=== PATIENT | male | born 1950 | race Caucasian/White ===

== ENCOUNTER → 2016-08-20 | Outpatient (CLI) | payer BC ==
[~2016-08-20] MED LIST: B-100 COMPLEX100 MG PO; PERCOCET5/325 PO; VITAMIN B-123000 MCG PO; VITAMIN D1000 UNIT PO; VITAMIN E400 UNI2 PO; XARELTO10 MG PO
--- NOTE | ~2016-08-20 | EKG ---
PATIENT: NAHID VICTOR UNIT #: [id number] Ventricular Rate: 64 BPM Atrial Rate: 64 BPM P-R Interval: 178 ms QRS Duration: 116 ms Q-T Interval: 414 ms QTC Calculation(Bezet): 427 ms P Conifer: 39 degrees Calculated R Conifer: 31 degrees Calculated T Conifer: 51 degrees Diagnosis Line: Sinus rhythm with marked sinus arrhythmia Diagnosis Line: Otherwise normal ECG Diagnosis Line: No previous ECGs available Diagnosis Line: Confirmed by DILLAN NELSON MD ([id number]) on Diagnosis Line: 08/21/2016 7:59:38 AM INTERPRETING MD: LESLIE CHIN
[2016-08-20 12:12] LABS: HEMATOCRIT 42.2 % (38.0-50.0); HEMOGLOBIN 14.4 gm/dL (13.0-16.0); MEAN CELL VOLUME 97.5 FL (83-96); MEAN CORPUSCULAR HEMOGLOBIN 33.4 PG (28-34); MEAN CORPUSCULAR HGB CONC 34.2 g/dL (30-36); MEAN PLATELET VOLUME 9.2 FL (6.5-11.5); RED BLOOD COUNT 4.33 X10e (3.90-5.60); RED CELL DISTRIBUTION WIDTH 12.8 % (11.0-15.5)
[2016-08-20 12:29] LABS: URINE APPEARANCE CLEAR; URINE BILIRUBIN NEG (NEG); URINE BLOOD NEG (NEG); URINE COLOR YELLOW; URINE GLUCOSE NEG (NEG); URINE KETONE NEG (NEG); URINE LEUKOCYTE ESTERASE NEG (NEG); URINE NITRATE NEG (NEG); URINE PH 6.5 (5-8); URINE PROTEIN NEG (NEG); URINE SPECIFIC GRAVITY 1.015 (1.003-1.035); URINE UROBILINOGEN 0.2 MG/DL (NEG)
[2016-08-20 12:44] LABS: CALCIUM SERUM 9.3 mg/dL (8.4-10.2); CREATININE SERUM 0.5 mg/dL (0.6-1.4); GLOM FILT RATE Estimated 114.6 mL/min (>60); POTASSIUM 4.1 mmol/L (3.5-5.1)
[2016-08-20 12:47] LABS: URINE SOURCE CLEAN CATCH
[2016-08-20 12:48] LABS: CULTURE INDICATED? NO
== END | disposition home or self-care (01) ==
LOC: CAMB 10:46
PROVIDERS: Orthopaedic Surgery
DX: Z01.818 Encounter for other preprocedural examination (principal); M19.072 Primary osteoarthritis, left ankle and foot; S86.312A Strain of muscle(s) and tendon(s) of peroneal muscle group at lower leg level, left leg, initial encounter
CPT/HCPCS: 36415; 80048; 81003; 85027; 87070; 93005

== ENCOUNTER 2016-09-01 08:24 | Inpatient (IN) | payer BC ==
[~2016-09-01] VITALS: Ht 175.3 cm; Wt 88.6 kg
--- NOTE | ~2016-09-01 | HP ---
Unit #: [id number] #: [id number] Patient: NAHID VICTOR [id number] [address] [place], [place] [address] [id number] I MR#: [id number] NAME: NAHID VICTOR. ROOM: [facility] Age: Sex: M Admission Date: 09/01/2016 : 1950 Attending Physician: Brock Slade M.D. HISTORY AND PHYSICAL CHIEF COMPLAINT Left ankle pain and deformity. HISTORY OF PRESENT ILLNESS The patient is a 66-year-old male with a history of multiple left ankle injuries in the past. He now has developed worsening left ankle pain and deformity. He has been treated with pain cream, cortisone injections, and anti-inflammatory medications. X-rays show fhgi-rt-lydd opposition of the superior medial tibiotalar joint with 6 degrees of tibiotalar varus. Clinically, he has 20 degrees of heel varus and radiographs show a cavus deformity. The patient is therefore admitted for left ankle replacement, lateralizing calcaneal osteotomy, first metatarsal osteotomy, and peroneal tendon repair, and Brostrom reconstruction. The patient has a MRI which documents peroneus brevis tendon tear. PAST MEDICAL HISTORY Gout. CURRENT MEDICATIONS None. ALLERGIES None. PAST SURGICAL HISTORY None. SOCIAL HISTORY The patient drinks alcohol socially. He is a nonsmoker. FAMILY HISTORY Remarkable for alcohol abuse. REVIEW OF SYSTEMS Unremarkable. PHYSICAL EXAMINATION GENERAL: Height 5 foot 9 inches, weight 200 pounds, BMI 29.5. This is a well-developed, well-nourished male in no acute distress. HEENT: Pharynx is clear. NECK: Supple without masses. HEART: Reveals a regular sinus rhythm without murmurs or gallops. LUNGS: Clear. ABDOMEN: Soft and nontender without masses or organomegaly. Unit #: [id number] #: [id number] Patient: NAHID VICTOR EXTREMITIES: Evaluation of the left foot shows a mild cavus deformity. There is 20 degrees of left heel varus. Left ankle dorsiflexion 5 degrees. Plantar flexion 40 degrees. Subtalar inversion 20 degrees. Eversion zero degrees. First MTP joint motion is normal. The patient has moderate swelling of the ankle. He has a positive peek-a-pichardo heel sign. The patient is maximally tender along the posterolateral ankle joint as well as in the anterior aspect of the tibiotalar joint. Pulses are normal. Sensation is normal. Motor exam is normal to include normal eversion strength. DIAGNOSTIC STUDIES IMAGING: Standing x-rays of the left ankle demonstrate qfih-hq-neiv opposition of the superior medial tibiotalar joint with 6 degrees of tibiotalar varus. Lateral talar first metatarsal angle is 5 degrees. Calcaneal pitch 17 degrees. Medial cuneiform height is 24 mm. ADMITTING DIAGNOSES 1. Left ankle arthritis with tibiotalar varus. 2. Left cavovarus foot deformity. 3. Left peroneus brevis tendon tear. PLAN 1. The patient has failed conservative care. Risks and benefits of fusion versus replacement have been discussed. He agrees to proceed with ankle replacement. 2. The patient will therefore be scheduled for left total ankle arthroplasty using the Thor Talaris implant, Enciso calcaneal osteotomy, peroneus brevis repair, and possible peroneal tenodesis, Brostrom lateral ankle reconstruction, and possible elevating osteotomy of the first metatarsal dorsal base. This procedure was described with a diagram. Risks of the procedure were discussed to include bleeding, infection, nerve damage, need for further surgery in the future, prolonged recovery time, deep venous thrombosis, pulmonary embolism, anesthetic complications, loosening the prosthesis, infection of the prosthesis, need for multiple revision surgeries to include fusion in the future. He understands above risks and agrees to proceed. Dictated by Db Murillo/ramu TD: 08/31/2016 16:33 JOB #: [id number] Unit #: [id number] #: [id number] Patient: NAHID VICTOR HISTORY AND PHYSICAL Page 1 of 1 X Joanna Slade MD X HISTORY AND PHYSICAL
--- NOTE | ~2016-09-01 | DS ---
Unit #: [id number] #: [id number] Patient: NAHID VICTOR [id number] [address] [place], [place] [address] [id number] I MR#: [id number] NAME: NAHID VICTOR. ROOM: [facility] Age: 66 Sex: M Admission Date: 09/01/2016 : 1950 Discharge Date: 09/03/2016 Attending Physician: Brock Slade M.D. DISCHARGE SUMMARY CHIEF COMPLAINT Left ankle pain and deformity. HISTORY OF PRESENT ILLNESS The patient is a 66-year-old male with a history of multiple left ankle injuries in the past. He now has end-stage ankle arthritis with ankle varus. He also has 20 degrees of heel varus and a cavus deformity. He is therefore admitted for left ankle replacement, calcaneal osteotomy, first metatarsal osteotomy, and Brostrom reconstruction. HOSPITAL COURSE The patient was taken to the operating room on the day of admission where he underwent left ankle replacement using the Thor Talaris implant, lateralizing calcaneal osteotomy, elevating first metatarsal base osteotomy, and Brostrom ligamentous reconstruction. There were no operative complications. He had a stable postoperative course. He remained afebrile with stable vital signs. He was seen by physical therapy and instructed on how to remain nonweightbearing on his effected extremity. Pain was controlled with Percocet and IV morphine [employer]. Dressing was changed on the second postoperative day. Wounds were healing well. He was ready for discharge at that time. FINAL DIAGNOSIS Left ankle arthritis. OPERATIONS 1. Left ankle replacement. 2. Calcaneal osteotomy. 3. First metatarsal base osteotomy. 4. Lateral ankle ligamentous reconstruction on September 01, 2016. DISPOSITION AND RECOMMENDATIONS 1. The patient is discharged home. Will keep the dressing clean, dry, and intact. He will continue ice and elevation. He will remain strictly nonweightbearing on the left leg for six weeks. 2. Discharge medications remain the same as home medications with the addition of Xarelto 10 mg p.o. daily for 12 more days and Percocet 5/325 one or two p.o. q.4-6 hours p.r.n. pain dispense #50. 3. Followup in my office in 10-14 days for dressing change, suture removal, and application of a CAM boot. He will continue nonweightbearing for a total of six weeks. Unit #: [id number] #: [id number] Patient: NAHID VICTOR Dictated byDb Underwood/ramu TD: 09/03/2016 09:47 JOB #: [id number] DISCHARGE SUMMARY Page 1 of 1 X Joanna Slade MD X DISCHARGE SUMMARY
--- NOTE | ~2016-09-01 | EKG ---
PATIENT: NAHID VICTOR UNIT #: [id number] Ventricular Rate: 64 BPM Atrial Rate: 64 BPM P-R Interval: 160 ms QRS Duration: 114 ms Q-T Interval: 398 ms QTC Calculation(Bezet): 410 ms P Lyons: 39 degrees Calculated R Lyons: 34 degrees Calculated T Lyons: 40 degrees Diagnosis Line: Normal sinus rhythm Diagnosis Line: Normal ECG Diagnosis Line: When compared with ECG of 20-AUG-2016 11:13, Diagnosis Line: No significant change was found Diagnosis Line: Confirmed by DILLAN NELSON MD ([id number]) on Diagnosis Line: 09/04/2016 7:29:39 AM INTERPRETING MD: LESLIE CHIN
--- NOTE | ~2016-09-01 | OR ---
Unit #: [id number] #: [id number] Patient: NAHID VICTOR [id number] [address] [place], [place] [address] [id number] MR#: [id number] NAME: NAHID VICTOR. ROOM: [facility] Date of Procedure: 09/01/2016 Admission Date: 09/01/2016 Surgeon: Brock Slade M.D. : 1950 Attending Physician: Brock Slade M.D. OPERATIVE REPORT PREOPERATIVE DIAGNOSES 1. Left ankle degenerative arthritis. 2. Left cavovarus foot. POSTOPERATIVE DIAGNOSES 1. Left ankle degenerative arthritis. 2. Left cavovarus foot. PROCEDURES PERFORMED 1. Left total ankle arthroplasty (34245). 2. Left lateralizing calcaneal osteotomy (30047). 3. Left elevating first metatarsal base osteotomy (82954). 4. Left lateral ankle Brostrom ligamentous reconstruction (75170). [employer] Rosemary Das Vessell. ANESTHESIA Popliteal saphenous block. IMPLANT Thor Talaris tibial size #2, talar size #2, polyethylene insert 8 mm, Arthrex 5.5 mm diameter metal suture anchor, 3 cannulated 4.0 mm diameter Synthes screws, 22-gauge wire. INDICATIONS FOR SURGERY The patient is a 66-year-old male, a left cavovarus foot deformity, which has been unresponsive to conservative care, and has now developed significant tibiotalar varus and tibiotalar arthritis. Standing radiographs demonstrate marked tibiotalar varus, and clinically, he has 22 degrees of hindfoot varus. The patient has failed conservative care and is therefore to undergo ankle replacement and cavovarus foot reconstruction with calcaneal osteotomy and first metatarsal osteotomy. DESCRIPTION OF PROCEDURE The patient underwent left popliteal saphenous block. He was taken to the operating room and placed in supine position, and general anesthetic was induced. The left ankle was identified as the correct operative extremity during the time-out procedure. The IV antibiotic protocol was followed. The left leg was prepped and draped in usual sterile fashion. The leg was exsanguinated, and the thigh tourniquet inflated to 250 mmHg. Unit #: [id number] #: [id number] Patient: NAHID VICTOR A 12-cm anterior longitudinal incision was made over the ankle joint. The subcutaneous tissue was divided, and the superficial peroneal nerve was identified and protected. The extensor retinaculum was opened. The interval between the extensor hallucis and anterior tibial tendons was developed. The neurovascular bundle was retracted laterally. The joint was exposed subperiosteally. The power osteotome was used to remove the anterior distal tibial osteophyte and a large dorsal medial talar osteophyte. Both gutters were cleared of all synovitic tissue and osteophytes. The Thor Talaris tibial alignment guide was then pinned into position over the tibia by placing a pin in the tibial tuberosity and the pin in the distal tibia. The alignment amanda was aligned with the tibial shaft. The tibia and talus were sized at #2. Rotation was set, and an 8-mm bone resection was set. The #2 tibial cutting block was applied. The three drill holes were placed medially and laterally, and the distal tibial cut was made. The anterior half of the distal tibial cut bone was removed piecemeal. The talar pin setting guide was then used to place the pin in the talar neck. Pin position was checked with C-arm fluoroscopy. The posterior talar cutting guide was applied. The four pins were placed, and the posterior talar cut was made. The anterior talar cutting guide was applied, and the anterior talar neck was milled. Finally, the lateral talar cutting guide was pinned into place. The Goodman saw was used, and the lateral talar cut was made. The talar trial fit appropriately. The #2 tibial trial with 8-mm poly insert showed satisfactory stability of the ankle joint in an excellent range of motion. The three drill holes were placed in the distal tibia and then connected with the chisel and rasp. The wounds were copiously irrigated. All bony debris was removed. The final #2 talar component was impacted into place. The 8-mm poly was fixated to #2 tibial component, and it was impacted into place. Excellent fit and fill. An excellent position of the implant was confirmed with C-arm fluoroscopy. There was ongoing tibiotalar instability due to the lateral ligamentous instability. Therefore, Brostrom reconstruction was required. A 3-cm anterolateral curvilinear incision was made over the distal fibula. The joint capsule was opened, and 2 large loose bodies were removed from the lateral gutter. An Arthrex 5.5 mm diameter metal suture anchor was then placed into the fibula, and the two attached #2 FiberWire sutures were used to imbricate and advanced the lateral ligaments proximally and laterally to tighten the lateral capsule and anterior talofibular ligament. This was then oversewn with multiple #2 FiberWire sutures. An excellent repair was achieved, and the talar tilt was eliminated. A 5-cm oblique incision was made along the lateral calcaneus just posterior to the peroneal tendons. Subcutaneous tissue was divided. The saw was then used to cut the calcaneus from lateral to medial. The medial cortex was then cut with a power osteotome. The medial soft tissues were spread with the smooth laminar candy spreader. The calcaneal tuberosity was then displaced laterally 1 cm and fixated with two Synthes 4.0 mm diameter cannulated screws placed from posterior to anterior. The forefoot then rested in 20 degrees of valgus. Therefore, an elevating osteotomy of the first metatarsal was required. A dorsal longitudinal incision was made over the first metatarsal base. Subcutaneous tissue was Unit #: [id number] #: [id number] Patient: NAHID VICTOR divided. The extensor hallucis longus was retracted. The first metatarsal base was exposed subperiosteally. Baby Hohmann retractors were placed. The microsagittal saw was then used to fashion a 3-mm dorsal closing wedge osteotomy of the first metatarsal base 1.5 cm distal to the first tarsometatarsal joint. The wedge of bone was removed, and the osteotomy was closed. A tension band technique was then used to fixate the osteotomy. A 22-gauge wire was placed through a horizontal hole in the distal fragment. A Synthes 4.0 mm diameter cannulated screw was placed in the proximal fragment from dorsal to plantar. The wire was then wrapped in a vpqglo-ls-bvbcr fashion around the screw head and then twisted on itself and cut. The screw was then advanced and tightened. Excellent fixation was achieved. Intraoperative C-arm fluoroscopy documented satisfactory reduction of all osteotomies. Clinically, the foot position was excellent. The forefoot was rectus. The hindfoot was in 2 degrees of valgus. Ankle dorsiflexion was 10 degrees. Plantar flexion was 40 degrees. There was no varus instability. The distal tibial keel was then bone grafted with cut bone taken from the distal tibia. This was impacted into place. A 3-minute dilute Betadine wash was applied to the ankle joint and then lavaged with normal saline. The joint capsule was closed with 2-0 Vicryl [id number]-[id number] sutures. The extensor retinaculum was closed with 2-0 Vicryl xocnxi-ri-pcwcz sutures. Subcutaneous tissue was closed with 3-0 Vicryl. The skin was closed with 3-0 nylon horizontal mattress sutures. Xeroform gauze, dressing, sponges, Webril, and a posterior fiberglass splint were applied. The patient was then transported to the recovery room in stable condition. ESTIMATED BLOOD LOSS Minimal. COMPLICATIONS None. SPECIMENS None. TOURNIQUET TIME 2 hours. Dictated by.Db Mcmillan/kelle TD: 09/02/2016 07:14 JOB #: [id number] OPERATIVE REPORT Page 1 of 1 X Joanna Slade MD X PROCEDURE OPERATIVE NOTE
[2016-09-01] MEDS ORDERED: VITAMIN D1000 UNIT PO (09:20)
[2016-09-01] MEDS ORDERED: B-100 COMPLEX100 MG PO (11:50)
[2016-09-01] MEDS ORDERED: VITAMIN E400 UNI2 PO (11:51)
[2016-09-01] MEDS ORDERED: VITAMIN B-123000 MCG PO (11:51)
[2016-09-03] MEDS ORDERED: PERCOCET5/325 PO (09:55)
[2016-09-03] MEDS ORDERED: XARELTO10 MG PO (09:55)
== END 2016-09-03 11:20 | disposition home or self-care (01) | DRG 470 ==
LOC: CSUR 08:24 → CPACUOF 08:52 → CSUR 08:52 → C4B 12:55 → CPACUOF 12:55 → C4B 16:35
PROVIDERS: Orthopaedic Surgery
PROC: 0QUM07Z Supplement Left Tarsal with Autologous Tissue Substitute, Open Approach (ICD-10-PCS; 2016-09-01)
PROC: 0QB Lower Bones, Excision (ICD-10-PCS; 2016-09-01)
PROC: 0MQR0ZZ Repair Left Ankle Bursa and Ligament, Open Approach (ICD-10-PCS; 2016-09-01)
PROC: 0SRG0JZ Replacement of Left Ankle Joint with Synthetic Substitute, Open Approach (ICD-10-PCS; principal; 2016-09-01 10:00)
PROC: 0QBP0ZZ Excision of Left Metatarsal, Open Approach (ICD-10-PCS; 2016-09-01 10:00)
PROC: 0QBM0ZZ Excision of Left Tarsal, Open Approach (ICD-10-PCS; 2016-09-01 10:00)
DX: M19.072 Primary osteoarthritis, left ankle and foot (principal); M21.172 Varus deformity, not elsewhere classified, left ankle; S96.812A Strain of other specified muscles and tendons at ankle and foot level, left foot, initial encounter; X58.XXXA Exposure to other specified factors, initial encounter
CPT/HCPCS: 93005; 94760; 94761; 97116; 97161; 97530; C1713; C1776; G8978-GP; G8979-GP; G8980-GP; J0690; J1100; J1885; J2270; J2405; J2795; J3010